=== PATIENT | female | born 1975 | race Two or more races ===

== ENCOUNTER → 2024-12-12 | Outpatient (REF) | payer BC | LOC: M SMT 12:32 | PROVIDERS: ATTEND Specialist | DX: N89.8 Other specified noninflammatory disorders of vagina (principal) ==

== ENCOUNTER 2025-01-08 08:53 | Day surgery (SDC) | payer BC ==
[~2025-01-08] VITALS: Ht 170.2 cm; Wt 83.3 kg
[~2025-01-08 08:53] MED LIST: AMLO1TAB24 PO; ESOM40CA35 PO; ESTR0.1C5 VG; GNP1000C11 PO; HM C500T4 PO; LEVOTAB10 PO; LINZ290C PO; MAGN200T PO; PERF3DRO OU; PYRI0.4T PO; RIBO100T3 PO; TURM500C PO; VITA-243 PO
[2025-01-08] MEDS ORDERED: LR 1,000 ML IV SCH ×2 (09:45→11:55)
[2025-01-08] MEDS: SCOPOLAMINE 1MG TRANSDERMAL PATCH TOP ONE (10:34)
[2025-01-08] MEDS ORDERED: LIDOCAINE 2% 100MG/5ML SDV (FOR ANES.) As Ordered ONE (10:38)
[2025-01-08] MEDS ORDERED: propofoL 200 MG/20 ML VIAL As Ordered ONE (10:38)
[2025-01-08] MEDS ORDERED: ONDANSETRON 4MG 2ML VIAL As Ordered ONE (10:38)
[2025-01-08] MEDS: BACITRACIN OINTMENT 30GM TUBE As Ordered ONE (10:40)
[2025-01-08] MEDS ORDERED: fentaNYL 100 MCG/2 ML INJECTION As Ordered ONE (10:40)
[2025-01-08] MEDS: METHYLENE BLUE 0.5% (5MG/ML) 10 ML AMP (PROVAYBLUE) As Ordered ONE (10:41)
[2025-01-08] MEDS: ESTROGENS VAGINAL CREAM 30GM As Ordered ONE (10:41)
[2025-01-08] MEDS ORDERED: MIDAZOLAM INJ 2MG/2ML VIAL As Ordered ONE (10:41)
[2025-01-08] MEDS: ceFAZolin SOD 2 GM IV ONCE IV ONE (10:47)
[2025-01-08] MEDS ORDERED: ROCURONIUM BROMIDE 50MG/5ML VIAL As Ordered ONE (10:58)
[2025-01-08] MEDS: GENTAMICIN SULF 80MG/2ML VIAL As Ordered ONE (11:33)
[2025-01-08] MEDS ORDERED: SUGAMMADEX SODIUM 500 MG/5 ML VIAL (BRIDION) As Ordered ONE (11:41)
[2025-01-08] MEDS ORDERED: fentaNYL 100 MCG/2 ML INJECTION IV PRN (11:55)
[2025-01-08] MEDS ORDERED: ONDANSETRON 4MG 2ML VIAL IV PRN (11:55)
[2025-01-08] MEDS ORDERED: KETOROLAC 30 MG/ML 1ML VIAL As Ordered ONE (12:05)
[2025-01-08 13:34] VITALS: BP 119/72; TEMP 97.3; O2SAT 100
== END 2025-01-08 13:42 | disposition home or self-care (01) ==
LOC: M SDC 08:53
PROVIDERS: ATTEND Specialist
DX: N36.1 Urethral diverticulum (principal); K21.9 Gastro-esophageal reflux disease without esophagitis; M79.7 Fibromyalgia; Z79.899 Other long term (current) drug therapy; Z91.040 Latex allergy status; Z91.013 Allergy to seafood; Z87.891 Personal history of nicotine dependence; Z88.8 Allergy status to other drugs, medicaments and biological substances
CPT/HCPCS: 53230; 81025; 88304; J0690; J1100; J1580; J1885; J2250; J2405; J3010

== ENCOUNTER → 2025-04-29 | Outpatient (CLI) | payer BC | LOC: M RAD 16:31 | PROVIDERS: ATTEND Physician Assistant | DX: J32.8 Other chronic sinusitis (principal) ==